=== PATIENT | male | born 1995 | race Caucasian/White ===

== ENCOUNTER 2017-06-05 23:24 | Emergency (ER) | payer OTHER ==
[~2017-06-05] VITALS: Ht 167.6 cm; Wt 55.0 kg
[~2017-06-05 23:24] MED LIST: NOHOMEMEDS; PROCTOFOAM-HC10 GM PR; TRAMADOL HCL50 MG PO
[2017-06-06] MEDS ORDERED: OCUFLOX 0.100 DROP/5 BOTH EYES (01:47)
[2017-06-06 03:31] VITALS: BP 111/70
== END 2017-06-06 03:31 | disposition home or self-care (01) ==
LOC: EME 23:24
PROC: 3E0234Z Introduction of Serum, Toxoid and Vaccine into Muscle, Percutaneous Approach (ICD-10-PCS; principal; 2017-06-05)
DX: H57.13 Ocular pain, bilateral (principal); Z23 Encounter for immunization; F17.200 Nicotine dependence, unspecified, uncomplicated
CPT/HCPCS: 99281; 99283